=== PATIENT | male | born 1990 | race American Indian/Alaskan Native ===

== ENCOUNTER 2017-08-06 06:15 | Emergency (ER) | payer MEDICAID ==
[2017-08-06 06:26] VITALS: BP 139/100
[2017-08-06] MEDS ORDERED: Ketorolac 30 MG/ML SDV IM ONE (07:17)
--- NOTE | 2017-08-06 07:17 | EDM.PDOC ---
ED HPI GENERAL MEDICAL PROBLEM - General Chief Complaint: Chest Pain Stated Complaint: CHEST PAIN [id number] Time Seen by Provider: 08/06/17 07:19 Source of Information: Reports: Patient History Limitations: Reports: No Limitations - History of Present Illness INITIAL COMMENTS - FREE TEXT/NARRATIVE: Patient comes to the ER frequently. Today complains of left upper chest wall pain. Denies cough or shortness of breath. Pain is worse with movement. Patient' s had extensive workup in the past with negative findings. No reflux symptoms. No neck pain. No headache or dizziness. Patient states that he has diaphoresis. Denies constipation or diarrhea. No fever chills. No recent injuries. Denies rapid heart rate or respiratory rate Onset: Today Duration: Hour(s): Location: Reports: Chest Quality: Reports: Sharp Severity: Moderate Worsens with: Reports: Movement Associated Symptoms: Reports: No Other Symptoms Chest Pain Score (Numeric/FACES): 5 - Related Data Allergies Allergy/AdvReac Type Severity Reaction Status Date / Time No Known Allergies Allergy Verified 08/06/17 06:27 Home Meds: Home Meds . [No Known Home Meds] 08/06/17 [History] Past Medical History - Past Health History Medical/Surgical History: Denies Medical/Surgical History HEENT History: Reports: None Cardiovascular History: Reports: Hypertension Respiratory History: Reports: Asthma, Bronchitis, Recurrent Gastrointestinal History: Reports: GERD, Other (See Below) Other Gastrointestinal History: CAVERNOUS HEMANGIOMA LIVER Musculoskeletal History: Reports: None Psychiatric History: Reports: Anxiety, Depression, Panic Attack Endocrine/Metabolic History: Reports: None - Past Surgical History Other Musculoskeletal Surgeries/Procedures:: Toenail Excision Social & Family History - Family History Family Medical History: Noncontributory - Tobacco Use Smoking Status *Q: Never Smoker Years of Tobacco use: 10 Packs/Tins Daily: 0.1 Used Tobacco, but Quit: Yes Month Tobacco Last Used: september 2015 Second Hand Smoke Exposure: Yes - Caffeine Use Caffeine Use: Reports: None - Alcohol Use Days Per Week of Alcohol Use: 2 Number of Drinks Per Day: 12 Total Drinks Per Week: 24 - Recreational Drug Use Recreational Drug Use: No Drug Use in Last 12 Months: No Recreational Drug Type: Reports: Marijuana/Hashish Recreational Drug Use Frequency: Not Used In Over 6 Months Recreational Drug Last Use: 13 years ago - Living Situation & Occupation Living situation: Reports: Single Occupation: Employed ED ROS GENERAL - Review of Systems Review Of Systems: See Below Constitutional: Reports: No Symptoms HEENT: Reports: No Symptoms Respiratory: Reports: No Symptoms Cardiovascular: Reports: Chest Pain Endocrine: Reports: No Symptoms GI/Abdominal: Reports: No Symptoms : Reports: No Symptoms Musculoskeletal: Reports: No Symptoms Skin: Reports: No Symptoms Neurological: Reports: No Symptoms Psychiatric: Reports: No Symptoms Hematologic/Lymphatic: Reports: No Symptoms Immunologic: Reports: No Symptoms ED EXAM, GENERAL - Physical Exam Exam: See Below Exam Limited By: No Limitations General Appearance: Alert Throat/Mouth: Normal Inspection, Normal Oropharynx Respiratory/Chest: No Respiratory Distress, Lungs Clear Cardiovascular: Normal Peripheral Pulses, Regular Rate, Rhythm, No Murmur Extremities: Normal Range of Motion Neurological: Alert, CN II-XII Intact Skin Exam: Warm, Dry Course - Vital Signs Last Recorded V/S: Last Vital Signs Temp 98.0 F 08/06/17 06:24 Pulse 97 08/06/17 06:24 Resp 20 08/06/17 06:24 BP 139/100 H 08/06/17 06:24 Pulse Ox 98 08/06/17 06:24 - Orders/Labs/Meds Orders: Active Orders 24 hr Category Date Time Status EKG 12 Lead [EKG Documentation Completion] [RC] STAT Care 08/06/17 07:21 Active CBC WITH AUTO DIFF [HEME] Stat Lab 08/06/17 07:21 Ordered D-DIMER QUANTITATIVE [COAG] Stat Lab 08/06/17 07:17 Ordered SEDIMENTATION RATE MANUAL [HEME] Stat Lab 08/06/17 07:17 Ordered Meds: Medications Discontinued Medications Generic Name Dose Route Start Last Admin Trade Name Leonila PRN Reason Stop Dose Admin Ketorolac Tromethamine 30 mg 08/06/17 07:17 Toradol IM 08/06/17 07:18 ONETIME ONE Departure - Departure Time of Disposition: 07:33 Disposition: Against Medical Advice 07 Condition: Good Clinical Impression: Non-cardiac chest pain Forms: ED Department Discharge, Refusal of Care AMA Additional Instructions: Patient refused medications lab work and further workup. Patient left AGAINST MEDICAL ADVICE - My Orders Last 24 Hours: My Active Orders 08/06/17 07:17 D-DIMER QUANTITATIVE [COAG] Stat SEDIMENTATION RATE MANUAL [HEME] Stat 08/06/17 07:21 EKG 12 Lead [EKG Documentation Completion] [RC] STAT CBC WITH AUTO DIFF [HEME] Stat - Assessment/Plan Last 24 Hours: My Active Orders 08/06/17 07:17 D-DIMER QUANTITATIVE [COAG] Stat SEDIMENTATION RATE MANUAL [HEME] Stat 08/06/17 07:21 EKG 12 Lead [EKG Documentation Completion] [RC] STAT CBC WITH AUTO DIFF [HEME] Stat
== END 2017-08-06 07:25 | disposition left against medical advice (07) ==
LOC: DL.ED 06:15
DX: R07.89 Other chest pain (principal); I10 Essential (primary) hypertension; Z87.891 Personal history of nicotine dependence
CPT/HCPCS: 99285

== ENCOUNTER 2018-07-16 00:13 | Emergency (ER) | payer MEDICAID ==
[2018-07-16 00:25] VITALS: BP 158/82
--- NOTE | 2018-07-16 00:41 | EDM.PDOC ---
ED HPI GENERAL MEDICAL PROBLEM - General Chief Complaint: Respiratory Problem Stated Complaint: BRONCHITUS Time Seen by Provider: 07/16/18 00:33 Source of Information: Reports: Patient History Limitations: Reports: No Limitations - History of Present Illness INITIAL COMMENTS - FREE TEXT/NARRATIVE: c/o 8 weeks h/o bronchitis and also has tooth ache and orajel not helping. Treatments ATTRACTION ATTENDANT: Reports: Acetaminophen - Related Data Allergies Allergy/AdvReac Type Severity Reaction Status Date / Time No Known Allergies Allergy Verified 08/06/17 06:27 Home Meds: Home Meds . [No Known Home Meds] 08/06/17 [History] Past Medical History - Past Health History Medical/Surgical History: Denies Medical/Surgical History HEENT History: Reports: None Cardiovascular History: Reports: Hypertension Respiratory History: Reports: Asthma, Bronchitis, Recurrent Gastrointestinal History: Reports: GERD, Other (See Below) Other Gastrointestinal History: CAVERNOUS HEMANGIOMA LIVER Musculoskeletal History: Reports: None Psychiatric History: Reports: Anxiety, Depression, Panic Attack Endocrine/Metabolic History: Reports: None - Past Surgical History Other Musculoskeletal Surgeries/Procedures:: Toenail Excision Social & Family History - Family History Family Medical History: Noncontributory - Tobacco Use Smoking Status *Q: Former Smoker Used Tobacco, but Quit: No Second Hand Smoke Exposure: Yes - Caffeine Use Caffeine Use: Reports: Coffee - Alcohol Use Date of Last Drink: 07/14/18 - Recreational Drug Use Recreational Drug Use: No - Living Situation & Occupation Living situation: Reports: Single Occupation: Employed ED ROS GENERAL - Review of Systems Review Of Systems: ROS reveals no pertinent complaints other than HPI. ED EXAM, GENERAL - Physical Exam Exam: See Below Exam Limited By: No Limitations General Appearance: Alert, WD/WN, No Apparent Distress Ears: Hearing Grossly Normal Throat/Mouth: Normal Voice, No Airway Compromise, Other (left upper molars decay ) Head: Atraumatic Neck: Non-Tender, Full Range of Motion Respiratory/Chest: No Respiratory Distress, No Accessory Muscle Use, Rhonchi. No: Decreased Breath Sounds Cardiovascular: Regular Rate, Rhythm GI/Abdominal: Soft, Non-Tender Neurological: Alert, Oriented, Normal Cognition, Normal Gait, No Motor/Sensory Deficits Psychiatric: Flat Affect Skin Exam: Warm, Dry, Normal Color Lymphatic: No Adenopathy Course - Vital Signs Last Recorded V/S: Last Vital Signs Temp 36.6 C 07/16/18 00:23 Pulse 116 H 07/16/18 00:23 Resp 21 H 07/16/18 00:23 BP 158/82 H 07/16/18 00:23 Pulse Ox 100 07/16/18 00:23 - Orders/Labs/Meds Orders: Active Orders 24 hr Category Date Time Status Chest 2V [CR] Urgent Exams 07/16/18 00:26 Taken Clindamycin HCl [Cleocin] Med 07/16/18 01:32 Once 150 mg PO ONETIME ONE Ketorolac [Toradol] Med 07/16/18 01:32 Once 10 mg PO ONETIME ONE - Re-Assessments/Exams Free Text/Narrative Re-Assessment/Exam: 07/16/18 01:33 results discussed with pt Departure - Departure Time of Disposition: 01:33 Disposition: Home, Self-Care 01 Condition: Good Clinical Impression: Acute bronchitis, Dental abscess - Discharge Information Instructions: Acute Bronchitis, Adult, [id number] Forms: ED Department Discharge Additional Instructions: 1) no solid foods next 48 hours 2) see DENTIST Tuesday rx given; clindamycin 150mg qid x 41 toradol 10mg bid prn x 12 - My Orders Last 24 Hours: My Active Orders 07/16/18 00:26 Chest 2V [CR] Urgent 07/16/18 01:32 Clindamycin HCl [Cleocin] 150 mg PO ONETIME ONE Ketorolac [Toradol] 10 mg PO ONETIME ONE - Assessment/Plan Last 24 Hours: My Active Orders 07/16/18 00:26 Chest 2V [CR] Urgent 07/16/18 01:32 Clindamycin HCl [Cleocin] 150 mg PO ONETIME ONE Ketorolac [Toradol] 10 mg PO ONETIME ONE
[2018-07-16] MEDS ORDERED: Ketorolac 10 MG Tab PO ONE (01:32)
[2018-07-16] MEDS ORDERED: Clindamycin HCl 150 MG Cap PO ONE (01:32)
== END 2018-07-16 01:50 | disposition home or self-care (01) ==
LOC: DL.ED 00:13
DX: J20.9 Acute bronchitis, unspecified (principal); K04.7 Periapical abscess without sinus; I10 Essential (primary) hypertension; Z87.891 Personal history of nicotine dependence
CPT/HCPCS: 71046; 99283; A9270

== ENCOUNTER 2020-06-26 11:02 | Observation (INO) | payer MEDICAID ==
--- NOTE | 2020-06-26 11:19 | EDM.PDOCBH ---
ED HPI GENERAL MEDICAL PROBLEM - General Time Seen by Provider: 06/26/20 11:11 Source of Information: Reports: EMS, EMS Notes Reviewed, RN, RN Notes Reviewed History Limitations: Reports: Altered Mental Status, Intoxication - History of Present Illness INITIAL COMMENTS - FREE TEXT/NARRATIVE: Patient presents to the ED via EMS due to lethargy and unresponsiveness at the local bar. Per EMS report the patient was drinking this morning at a local bar when the patron noted he was not responding verbally to questions. These patrons lowered him to the ground to prevent him from falling and called EMS. The patient was given Narcan 2mg en route which did not improve his responsiveness. EMS states he moves to deep pain, but does not open his eyes. Upon arrival to this facility the patient remains unresponsive to verbal comma nds but does move his extremities and trunk to deep pain. - Related Data Allergies Allergy/AdvReac Type Severity Reaction Status Date / Time No Known Allergies Allergy Verified 08/06/17 06:27 Home Meds: Home Meds . [No Known Home Meds] 08/06/17 [History] Past Medical History - Past Health History Medical/Surgical History: Denies Medical/Surgical History HEENT History: Reports: None Cardiovascular History: Reports: Hypertension Respiratory History: Reports: Asthma, Bronchitis, Recurrent Gastrointestinal History: Reports: GERD, Other (See Below) Other Gastrointestinal History: CAVERNOUS HEMANGIOMA LIVER Musculoskeletal History: Reports: None Psychiatric History: Reports: Anxiety, Depression, Panic Attack Endocrine/Metabolic History: Reports: None - Past Surgical History Other Musculoskeletal Surgeries/Procedures:: Toenail Excision Social & Family History - Family History Family Medical History: No Pertinent Family History - Caffeine Use Caffeine Use: Reports: Coffee - Living Situation & Occupation Living situation: Reports: Single Occupation: Employed ED ROS GENERAL - Review of Systems Review Of Systems: Unable To Obtain Reason Not Obtained: Patient intoxicated and unresponsive ED EXAM, BEHAVIORAL HEALTH - Physical Exam Exam: See Below Exam Limited By: Intoxication (AMS) General Appearance: Lethargic Eye Exam: Bilateral Eye: PERRL (6mm), Other (Scleral injection) Head: Atraumatic, Normocephalic Respiratory/Chest: Lungs Clear, No Accessory Muscle Use, Chest Non-Tender, Other (Intermittent snoring respirations) Cardiovascular: Normal Peripheral Pulses, Regular Rate, Rhythm, No Edema, No Gallop, No JVD, No Murmur, No Rub, Tachycardia GI/Abdominal: Normal Bowel Sounds, Soft, Non-Tender, No Distention, No Mass, Pelvis Stable (Male) Exam: Deferred Rectal (Males) Exam: Deferred Extremities: Normal Inspection, Normal Range of Motion, Non-Tender, No Pedal Edema, Normal Capillary Refill Neurological: Withdraws to Pain Skin Exam: Warm, Dry, Intact, Normal color, No rash. No: Ecchymosis, Erythema, Excoriations, Jaundice, Mottled, Pallor, Petechiae #1 Interpretation EKG Date: 06/26/20 Time: 11:19 Rhythm: NSR Rate (Beats/Min): 95 Merna: Normal P-Wave: Present QRS: Normal ST-T: Normal QT: Normal COURSE, BEHAVIORAL HEALTH COMP - Course Vital Signs: Last Vital Signs Temp 98.1 F 06/26/20 11:17 Pulse 95 06/26/20 11:17 Resp 18 06/26/20 11:17 BP 125/83 06/26/20 11:17 Pulse Ox 99 06/26/20 11:17 Orders, Labs, Meds: Active Orders 24 hr Category Date Time Status Admission Diagnosis [ADT] Stat ADT 06/26/20 11:59 Ordered Admission Status [Patient Status] [ADT] Routine ADT 06/26/20 11:59 Ordered EKG Documentation Completion [RC] STAT Care 06/26/20 11:04 Active CORONAVIRUS COVID-19 HOWARD [MOLEC] Stat Lab 06/26/20 11:55 Ordered MVI, Adult with Vitamin K [Infuvite Adult] 10 ml Med 06/26/20 11:23 Ordered Thiamine [Vitamin B-1] 100 mg Folic Acid 1 mg Lactated Ringers [Ringers, Lactated] 1,000 ml IV .BOLUS Medication Orders Multivitamins/Minerals 10 ml/Thiamine HCl 100 mg/ Folic Acid 1 mg/ Lactated Ringer's 1,011.2 mls @ 999 mls/hr IV .BOLUS ONE Stop: 06/26/20 12:23 Laboratory Tests 06/26/20 06/26/20 06/26/20 Range/Units 11:15 11:15 11:15 WBC 7.9 (5.0-10.0) 10^3/uL RBC 5.22 (4.6-6.2) 10^6/uL Hgb 15.1 (14.0-18.0) g/dL Hct 44.3 (40.0-54.0) % MCV 84.9 (80-100) fL MCH 28.9 (27.0-34.0) pg MCHC 34.1 (33.0-35.0) g/dL Plt Count 223 (150-450) 10^3/uL Neut % (Auto) 51.5 (42.2-75.2) % Lymph % (Auto) 38.6 (20.5-50.1) % Harvey % (Auto) 8.0 (2-8) % Eos % (Auto) 1.5 (1.0-3.0) % Baso % (Auto) 0.4 (0.0-1.0) % Sodium 140 (136-145) mmol/L Potassium 3.4 L (3.5-5.1) mmol/L Chloride 103 (98-107) mmol/L Carbon Dioxide 22 (21-32) mmol/L Anion Gap 18.4 H (7-13) mEq/L BUN 7 (7-18) mg/dL Creatinine 0.55 L (0.70-1.30) mg/dL Est Cr Clr Drug Dosing 207.27 mL/min Estimated GFR (MDRD) > 60 BUN/Creatinine Ratio 12.7 (No establ ref range) Glucose 167 H (74-99) mg/dL Lactic Acid 1.6 (0.4-2.0) mmol/L Calcium 7.6 L (8.5-10.1) mg/dL Magnesium 2.0 (1.8-2.4) mg/dL Total Bilirubin 0.3 (0.2-1.0) mg/dL AST 37 (15-37) U/L ALT 55 (16-63) U/L Alkaline Phosphatase 84 (46-116) U/L Troponin I < 0.017 (0.000-0.056) ng/mL C-Reactive Protein 1.4 H (0.0-0.9) mg/dL Total Protein 7.3 (6.4-8.2) g/dL Albumin 3.4 (3.4-5.0) g/dL Globulin 3.9 Albumin/Globulin Ratio 0.9 Urine Color (YELLOW) Urine Appearance (CLEAR) Urine pH (5.0-9.0) Ur Specific [place] (1.005-1.030) Urine Protein (NEGATIVE) Urine Glucose (UA) (NEGATIVE) Urine Ketones (NEGATIVE) Urine Occult Blood (NEGATIVE) Urine Nitrite (NEGATIVE) Urine Bilirubin (NEGATIVE) Urine Urobilinogen (0.2-1.0) mg/dL Ur Leukocyte Esterase (NEGATIVE) Urine RBC /HPF Urine WBC (0-5/HPF) /HPF Ur Epithelial Cells (NOT SEEN) /HPF Urine Bacteria (0-FEW/HPF) /HPF Urine Mucus (NOT SEEN) /LPF Urine Opiates Screen (NEGATIVE) Ur Oxycodone Screen (NEGATIVE) Urine Methadone Screen (NEGATIVE) Ur Barbiturates Screen (NEGATIVE) U Tricyclic Antidepress (NEGATIVE) Ur Phencyclidine Scrn (NEGATIVE) Ur Amphetamine Screen (NEGATIVE) U Methamphetamines Scrn (NEGATIVE) Urine MDMA Screen (NEGATIVE) U Benzodiazepines Scrn (NEGATIVE) Urine Cocaine Screen (NEGATIVE) U Marijuana (THC) Screen (NEGATIVE) Ethyl Alcohol 475 (0) mg/dL 06/26/20 06/26/20 Range/Units 11:17 11:17 WBC (5.0-10.0) 10^3/uL RBC (4.6-6.2) 10^6/uL Hgb (14.0-18.0) g/dL Hct (40.0-54.0) % MCV (80-100) fL MCH (27.0-34.0) pg MCHC (33.0-35.0) g/dL Plt Count (150-450) 10^3/uL Neut % (Auto) (42.2-75.2) % Lymph % (Auto) (20.5-50.1) % Harvey % (Auto) (2-8) % Eos % (Auto) (1.0-3.0) % Baso % (Auto) (0.0-1.0) % Sodium (136-145) mmol/L Potassium (3.5-5.1) mmol/L Chloride (98-107) mmol/L Carbon Dioxide (21-32) mmol/L Anion Gap (7-13) mEq/L BUN (7-18) mg/dL Creatinine (0.70-1.30) mg/dL Est Cr Clr Drug Dosing mL/min Estimated GFR (MDRD) BUN/Creatinine Ratio (No establ ref range) Glucose (74-99) mg/dL Lactic Acid (0.4-2.0) mmol/L Calcium (8.5-10.1) mg/dL Magnesium (1.8-2.4) mg/dL Total Bilirubin (0.2-1.0) mg/dL AST (15-37) U/L ALT (16-63) U/L Alkaline Phosphatase (46-116) U/L Troponin I (0.000-0.056) ng/mL C-Reactive Protein (0.0-0.9) mg/dL Total Protein (6.4-8.2) g/dL Albumin (3.4-5.0) g/dL Globulin Albumin/Globulin Ratio Urine Color Yellow (YELLOW) Urine Appearance Clear (CLEAR) Urine pH 5.0 (5.0-9.0) Ur Specific [place] <= 1.005 (1.005-1.030) Urine Protein Negative (NEGATIVE) Urine Glucose (UA) Negative (NEGATIVE) Urine Ketones Negative (NEGATIVE) Urine Occult Blood Trace-intact H (NEGATIVE) Urine Nitrite Negative (NEGATIVE) Urine Bilirubin Negative (NEGATIVE) Urine Urobilinogen 0.2 (0.2-1.0) mg/dL Ur Leukocyte Esterase Negative (NEGATIVE) Urine RBC Not seen /HPF Urine WBC Not seen (0-5/HPF) /HPF Ur Epithelial Cells Rare (NOT SEEN) /HPF Urine Bacteria Rare (0-FEW/HPF) /HPF Urine Mucus Not seen (NOT SEEN) /LPF Urine Opiates Screen Negative (NEGATIVE) Ur Oxycodone Screen Negative (NEGATIVE) Urine Methadone Screen Negative (NEGATIVE) Ur Barbiturates Screen Negative (NEGATIVE) U Tricyclic Antidepress Negative (NEGATIVE) Ur Phencyclidine Scrn Negative (NEGATIVE) Ur Amphetamine Screen Negative (NEGATIVE) U Methamphetamines Scrn Negative (NEGATIVE) Urine MDMA Screen Negative (NEGATIVE) U Benzodiazepines Scrn Negative (NEGATIVE) Urine Cocaine Screen Negative (NEGATIVE) U Marijuana (THC) Screen Negative (NEGATIVE) Ethyl Alcohol (0) mg/dL Medications Generic Name Dose Route Start Last Admin Trade Name Freq PRN Reason Stop Dose Admin Multivitamins/Minerals 10 ml/ 1,011.2 mls @ 999 mls/hr 06/26/20 11:23 Thiamine HCl 100 mg/ Folic IV 06/26/20 12:23 Acid 1 mg/ Lactated Ringer's .BOLUS ONE Re-Assessment/Re-Exam: Patient continues to have trunk and extremity movement to deep pain. 1L of LR finished, Banana bag to follow. CBC unremarkable for acute processes. CMP revealed mild hypokalemia at 3.4. Tox screen negative, ETOH [address] Chilel who kindly agreed to accept the patient for observation. Departure - Departure Time of Disposition: 12:04 Disposition: Refer to Observation Condition: Fair Clinical Impression: Hypokalemia Acute alcohol intoxication Qualifiers: Complication of substance-induced condition: uncomplicated Qualified Code(s): F10.920 - Alcohol use, unspecified with intoxication, uncomplicated - Discharge Information Sepsis Event Note (ED) - Focused Exam Vital Signs: Vital Signs Temp Pulse Resp BP Pulse Ox 06/26/20 11:17 98.1 F 95 18 125/83 99 - My Orders Last 24 Hours: My Active Orders 06/26/20 11:04 EKG Documentation Completion [RC] STAT 06/26/20 11:23 MVI, Adult with Vitamin K [Infuvite Adult] 10 ml Thiamine [Vitamin B-1] 100 mg Folic Acid 1 mg Lactated Ringers [Ringers, Lactated] 1,000 ml IV .BOLUS 06/26/20 11:55 CORONAVIRUS COVID-19 HOWARD [MOLEC] Stat 06/26/20 11:59 Admission Diagnosis [ADT] Stat Admission Status [Patient Status] [ADT] Routine - Assessment/Plan Last 24 Hours: My Active Orders 06/26/20 11:04 EKG Documentation Completion [RC] STAT 06/26/20 11:23 MVI, Adult with Vitamin K [Infuvite Adult] 10 ml Thiamine [Vitamin B-1] 100 mg F olic Acid 1 mg Lactated Ringers [Ringers, Lactated] 1,000 ml IV .BOLUS 06/26/20 11:55 CORONAVIRUS COVID-19 HOWARD [MOLEC] Stat 06/26/20 11:59 Admission Diagnosis [ADT] Stat Admission Status [Patient Status] [ADT] Routine
[2020-06-26] MEDS ORDERED: MVI, Adult with Vitamin K 10 ML, Thiamine 100 MG, Folic Acid 1 MG in Lactated Ringers 1... IV ONE ×4 (11:23)
[2020-06-26 11:48] LABS: ANION GAP 18.4 mEq/L (7-13); CHLORIDE,CL 103 mmol/L (98-107); SODIUM,NA 140 mmol/L (136-145)
[2020-06-26] MEDS ORDERED: Docusate Sodium 100 MG Cap PO PRN (12:47)
[2020-06-26] MEDS ORDERED: Magnesium Hydroxide 400 MG/5 ML Susp 30 ML Cup PO PRN (12:47)
[2020-06-26] MEDS ORDERED: Acetaminophen 325 MG Tab PO PRN (12:47)
--- NOTE | 2020-06-26 12:59 | PCM.HP ---
H&P History of Present Illness - General Date of Service: 06/26/20 Admit Problem/Dx: Admission Diagnosis/Problem Admission Diagnosis/Problem Alcohol intoxication Source of Information: EMS Notes Reviewed, RN Notes Reviewed, Other (ED provider ) History Limitations: Reports: Altered Mental Status - History of Present Illness Initial Comments - Free Text/Narative: Oneyda is 29 y/o M brought to the ED for evaluation of lethargy and unresponsiveness. Patient unable to provide history due to patient's factor. History from EMR and ED provider. Per reports patient presents to the ED via EMS due to lethargy and unresponsiveness at the local bar. Per EMS report the patient was drinking this morning at a local bar when the patron noted he was not responding verbally to questions. These patrons lowered him to the ground to prevent him from falling and called EMS. The patient was given Narcan 2mg en route which did not improve his responsiveness. EMS states he moves to deep pain, but does not open his eyes. Upon arrival to the ED the patient remains unresponsive to verbal commands but does move his extremities and trunk to deep pain. Vitals were stable. Labs essentially unremarkable. Blood alcohol level 457. U tox was negative. She received banana bag x1, 1 L of Ringer's lactate. Admission requested for further management. Onset of Symptoms: Reports: Today Duration of Symptoms: Reports: Hour(s): Location: Reports: Generalized Improves with: Reports: None Worsens with: Reports: None Associated Symptoms: Reports: Other (Lethargic) - Related Data Allergies/Adverse Reactions: Allergies Allergy/AdvReac Type Severity Reaction Status Date / Time No Known Allergies Allergy Verified 08/06/17 06:27 Home Medications: Home Meds . [No Known Home Meds] 08/06/17 [History] Past Medical History - Past Health History Medical/Surgical History: Denies Medical/Surgical History HEENT History: Reports: None Cardiovascular History: Reports: Hypertension Respiratory History: Reports: Asthma, Bronchitis, Recurrent Gastrointestinal History: Reports: GERD, Other (See Below) Other Gastrointestinal History: CAVERNOUS HEMANGIOMA LIVER Musculoskeletal History: Reports: None Psychiatric History: Reports: Anxiety, Depression, Panic Attack Endocrine/Metabolic History: Reports: None - Past Surgical History Other Musculoskeletal Surgeries/Procedures:: Toenail Excision Social & Family History - Family History Family Medical History: No Pertinent Family History - Caffeine Use Caffeine Use: Reports: Coffee - Living Situation & Occupation Living situation: Reports: Single Occupation: Employed H&P Review of Systems - Review of Systems: Review Of Systems: Unable To Obtain Reason Not Obtained: Patient lethargic General: Reports: No Symptoms HEENT: Reports: No Symptoms Pulmonary: Reports: No Symptoms Cardiovascular: Reports: No Symptoms Gastrointestinal: Reports: No Symptoms Genitourinary: Reports: No Symptoms Musculoskeletal: Reports: No Symptoms Skin: Reports: No Symptoms Psychiatric: Reports: No Symptoms Neurological: Reports: No Symptoms Hematologic/Lymphatic: Reports: No Symptoms Immunologic: Reports: No Symptoms Exam - Exam Exam: See Below (Patient lethargic and move extremities to sternal rub) - Vital Signs Vital Signs: Last Vital Signs Temp 98.1 F 06/26/20 11:17 Pulse 95 06/26/20 11:17 Resp 18 06/26/20 11:17 BP 125/83 06/26/20 11:17 Pulse Ox 99 06/26/20 11:17 Weight: 194 lb 3.2 oz - Exam Quality Assessment: Supplemental Oxygen, DVT Prophylaxis General: Lethargic HEENT: PERRLA, Hearing Intact, Mucosa Moist & Donald, Nares Patent, Normal Nasal Septum, Posterior Pharynx Clear, Conjunctiva Clear, EOMI, EACs Clear, TMs Clear Neck: Supple, Trachea Midline, 2 Lungs: Clear to Auscultation, Normal Respiratory Effort Cardiovascular: Regular Rate, Regular Rhythm GI/Abdominal Exam: Normal Bowel Sounds, Soft, Non-Tender, No Organomegaly, No Distention, No Abnormal Bruit, No Mass, Pelvis Stable (Male) Exam: No Hernia, Normal Inspection, Normal Prostate, Circumcised Rectal (Males) Exam: Deferred Back Exam: Normal Inspection, Full Range of Motion, NT Extremities: Normal Inspection, Normal Range of Motion, Non-Tender, No Pedal Edema, Normal Capillary Refill Skin: Warm, Dry, Intact Neurological: Other (Patient lethargic. Moves recently painful stimuli) Neuro Extensive - Mental Status: Other (Lethargic) Neuro Extensive - Motor, Sensory, Reflexes: Other (Unable to assess. Patient lethargic) Psychiatric: Alert, Normal Affect, Normal Mood - Patient Data Lab Results Last 24 hrs: Laboratory Results - last 24 hr 06/26/20 06/26/20 06/26/20 Range/Units 11:15 11:15 11:15 WBC 7.9 (5.0-10.0) 10^3/uL RBC 5.22 (4.6-6.2) 10^6/uL Hgb 15.1 (14.0-18.0) g/dL Hct 44.3 (40.0-54.0) % MCV 84.9 (80-100) fL MCH 28.9 (27.0-34.0) pg MCHC 34.1 (33.0-35.0) g/dL Plt Count 223 (150-450) 10^3/uL Neut % (Auto) 51.5 (42.2-75.2) % Lymph % (Auto) 38.6 (20.5-50.1) % [place] % (Auto) 8.0 (2-8) % Eos % (Auto) 1.5 (1.0-3.0) % Baso % (Auto) 0.4 (0.0-1.0) % Sodium 140 (136-145) mmol/L Potassium 3.4 L (3.5-5.1) mmol/L Chloride 103 (98-107) mmol/L Carbon Dioxide 22 (21-32) mmol/L Anion Gap 18.4 H (7-13) mEq/L BUN 7 (7-18) mg/dL Creatinine 0.55 L (0.70-1.30) mg/dL Est Cr Clr Drug Dosing 207.27 mL/min Estimated GFR (MDRD) > 60 BUN/Creatinine Ratio 12.7 (No establ ref range) Glucose 167 H (74-99) mg/dL Lactic Acid 1.6 (0.4-2.0) mmol/L Calcium 7.6 L (8.5-10.1) mg/dL Magnesium 2.0 (1.8-2.4) mg/dL Total Bilirubin 0.3 (0.2-1.0) mg/dL AST 37 (15-37) U/L ALT 55 (16-63) U/L Alkaline Phosphatase 84 (46-116) U/L Troponin I < 0.017 (0.000-0.056) ng/mL C-Reactive Protein 1.4 H (0.0-0.9) mg/dL Total Protein 7.3 (6.4-8.2) g/dL Albumin 3.4 (3.4-5.0) g/dL Globulin 3.9 Albumin/Globulin Ratio 0.9 Urine Color (YELLOW) Urine Appearance (CLEAR) Urine pH (5.0-9.0) Ur Specific [place] (1.005-1.030) Urine Protein (NEGATIVE) Urine Glucose (UA) (NEGATIVE) Urine Ketones (NEGATIVE) Urine Occult Blood (NEGATIVE) Urine Nitrite (NEGATIVE) Urine Bilirubin (NEGATIVE) Urine Urobilinogen (0.2-1.0) mg/dL Ur Leukocyte Esterase (NEGATIVE) Urine RBC /HPF Urine WBC (0-5/HPF) /HPF Ur Epithelial Cells (NOT SEEN) /HPF Urine Bacteria (0-FEW/HPF) /HPF Urine Mucus (NOT SEEN) /LPF Urine Opiates Screen (NEGATIVE) Ur Oxycodone Screen (NEGATIVE) Urine Methadone Screen (NEGATIVE) Ur Barbiturates Screen (NEGATIVE) U Tricyclic Antidepress (NEGATIVE) Ur Phencyclidine Scrn (NEGATIVE) Ur Amphetamine Screen (NEGATIVE) U Methamphetamines Scrn (NEGATIVE) Urine MDMA Screen (NEGATIVE) U Benzodiazepines Scrn (NEGATIVE) Urine Cocaine Screen (NEGATIVE) U Marijuana (THC) Screen (NEGATIVE) Ethyl Alcohol 475 (0) mg/dL SARS CoV-2 RNA Rapid HOWARD (NEGATIVE) 06/26/20 06/26/20 06/26/20 Range/Units 11:17 11:17 12:10 WBC (5.0-10.0) 10^3/uL RBC (4.6-6.2) 10^6/uL Hgb (14.0-18.0) g/dL Hct (40.0-54.0) % MCV (80-100) fL MCH (27.0-34.0) pg MCHC (33.0-35.0) g/dL Plt Count (150-450) 10^3/uL Neut % (Auto) (42.2-75.2) % Lymph % (Auto) (20.5-50.1) % [place] % (Auto) (2-8) % Eos % (Auto) (1.0-3.0) % Baso % (Auto) (0.0-1.0) % Sodium (136-145) mmol/L Potassium (3.5-5.1) mmol/L Chloride (98-107) mmol/L Carbon Dioxide (21-32) mmol/L Anion Gap (7-13) mEq/L BUN (7-18) mg/dL Creatinine (0.70-1.30) mg/dL Est Cr Clr Drug Dosing mL/min Estimated GFR (MDRD) BUN/Creatinine Ratio (No establ ref range) Glucose (74-99) mg/dL Lactic Acid (0.4-2.0) mmol/L Calcium (8.5-10.1) mg/dL Magnesium (1.8-2.4) mg/dL Total Bilirubin (0.2-1.0) mg/dL AST (15-37) U/L ALT (16-63) U/L Alkaline Phosphatase (46-116) U/L Troponin I (0.000-0.056) ng/mL C-Reactive Protein (0.0-0.9) mg/dL Total Protein (6.4-8.2) g/dL Albumin (3.4-5.0) g/dL Globulin Albumin/Globulin Ratio Urine Color Yellow (YELLOW) Urine Appearance Clear (CLEAR) Urine pH 5.0 (5.0-9.0) Ur Specific [place] <= 1.005 (1.005-1.030) Urine Protein Negative (NEGATIVE) Urine Glucose (UA) Negative (NEGATIVE) Urine Ketones Negative (NEGATIVE) Urine Occult Blood Trace-intact H (NEGATIVE) Urine Nitrite Negative (NEGATIVE) Urine Bilirubin Negative (NEGATIVE) Urine Urobilinogen 0.2 (0.2-1.0) mg/dL Ur Leukocyte Esterase Negative (NEGATIVE) Urine RBC Not seen /HPF Urine WBC Not seen (0-5/HPF) /HPF Ur Epithelial Cells Rare (NOT SEEN) /HPF Urine Bacteria Rare (0-FEW/HPF) /HPF Urine Mucus Not seen (NOT SEEN) /LPF Urine Opiates Screen Negative (NEGATIVE) Ur Oxycodone Screen Negative (NEGATIVE) Urine Methadone Screen Negative (NEGATIVE) Ur Barbiturates Screen Negative (NEGATIVE) U Tricyclic Antidepress Negative (NEGATIVE) Ur Phencyclidine Scrn Negative (NEGATIVE) Ur Amphetamine Screen Negative (NEGATIVE) U Methamphetamines Scrn Negative (NEGATIVE) Urine MDMA Screen Negative (NEGATIVE) U Benzodiazepines Scrn Negative (NEGATIVE) Urine Cocaine Screen Negative (NEGATIVE) U Marijuana (THC) Screen Negative (NEGATIVE) Ethyl Alcohol (0) mg/dL SARS CoV-2 RNA Rapid HOWARD Negative (NEGATIVE) Result Diagrams: 06/26/20 11:15 06/26/20 11:15 Problem List Initiated/Reviewed/Updated: Yes Orders Last 24hrs: Active Orders 24 hr Category Date Time Status Admission Diagnosis [ADT] Stat ADT 06/26/20 11:59 Ordered Admission Status [Patient Status] [ADT] Routine ADT 06/26/20 11:59 Active Bedrest Bedside Commode [RC] ASDIRECTED Care 06/26/20 12:47 Ordered EKG Documentation Completion [RC] STAT Care 06/26/20 11:04 Active Notify Provider Vital Signs [RC] ASDIRECTED Care 06/26/20 12:48 Ordered Oxygen Therapy [RC] PRN Care 06/26/20 12:47 Ordered VTE/DVT Education [RC] PER UNIT ROUTINE Care 06/26/20 12:47 Ordered Vital Signs [RC] Q4H Care 06/26/20 12:47 Ordered PT Evaluation and Treatment [CONS] Routine Cons 06/26/20 12:47 Ordered Nothing per Oral Now Diet [DIET] Diet 06/26/20 Lunch Ordered Brain wo Cont [MR] Routine Exams 06/26/20 12:51 Ordered PHOSPHORUS [CHEM] Routine Lab 06/26/20 12:51 Ordered Acetaminophen [TylenoL] Med 06/26/20 12:47 Ordered 650 mg PO Q4H PRN Dextrose 5%-0.9% NaCl [Dextrose 5%-Normal Saline] 500 Med 06/26/20 13:00 Ordered ml IV ASDIRECTED Docusate Sodium [Colace] Med 06/26/20 12:47 Ordered 100 mg PO BID PRN Heparin Sodium Med 06/26/20 21:00 Ordered 5,000 units SUBCUT Q12HR Magnesium Hydroxide [Milk of Magnesia] Med 06/26/20 12:47 Ordered 30 ml PO Q12H PRN Resuscitation Status Routine Resus Stat 06/26/20 12:47 Ordered Medication Orders Acetaminophen (Tylenol) 650 mg PO Q4H PRN PRN Reason: Pain (Mild 1-3)/fever Docusate Sodium (Colace) 100 mg PO BID PRN PRN Reason: Constipation Heparin Sodium (Porcine) (Heparin Sodium) 5,000 units SUBCUT Q12HR EDU Dextrose/Sodium Chloride (Dextrose 5%-Normal Saline) 500 mls @ 250 mls/hr IV ASDIRECTED EDU Stop: 06/29/20 14:59 Magnesium Hydroxide (Milk Of Magnesia) 30 ml PO Q12H PRN PRN Reason: Constipation Assessment/Plan Comment:: #Acute alcohol intoxication #Toxic encephalopathy due to above Admit to medical floor Received banana bag x1 and 1 L of IV fluid IV fluid with D5 NS 0.9% NS at 250 cc/h Check electrolytes and replete accordingly Aspiration/seizure/fall precautions #Hypokalemia Replace per protocol
[2020-06-26] MEDS ORDERED: Dextrose 5%-0.9% NaCl 500 ML IV SCH (13:00)
[2020-06-26] MEDS: Dextrose 5%-0.9% NaCl 1,000 ML IV SCH ×2 (13:41→17:49)
[2020-06-26] MEDS: Potassium Chloride 10 MEQ in Premix Bag 1 BAG IV SCH ×3 (13:41→15:55)
[2020-06-26] MEDS ORDERED: Dextrose 5%-0.9% NaCl 1,000 ML IV SCH (13:45)
[2020-06-26] MEDS ORDERED: LORazepam 2 MG/ML SDV IVPUSH PRN (14:25)
[2020-06-26] MEDS ORDERED: LORazepam 1 MG Tab PO PRN (14:26)
[2020-06-26] MEDS ORDERED: Sodium Chloride 0.9% 10 ML Syringe FLUSH PRN (14:47)
[2020-06-26] MEDS: LORazepam 2 MG/ML SDV IVPUSH PRN ×2 (15:06→17:27)
[2020-06-26] MEDS: Heparin Sodium 5,000 Units/ML Vial SUBCUT SCH (22:32)
[2020-06-27] MEDS ORDERED: Dextrose 5%-0.9% NaCl 1,000 ML IV SCH
[2020-06-27 03:22] VITALS: PULSE 98
[2020-06-27 08:01] VITALS: BP 138/79
[2020-06-27] MEDS: Heparin Sodium 5,000 Units/ML Vial SUBCUT SCH (09:41)
[2020-06-27 09:52] LABS: ANION GAP 13.8 mEq/L (7-13); CHLORIDE,CL 105 mmol/L (98-107); SODIUM,NA 142 mmol/L (136-145)
--- NOTE | 2020-06-27 10:28 | PCM.DCSUM1 ---
Discharge Summary - Hospital Course Free Text/Narrative:: Oneyda is 29 y/o M brought to the ED for evaluation of lethargy and unresponsiveness. He was found to be acutely intoxicated with alcohol. He was admitted tested IV hydration and electrolyte replacement. He regained full consciousness and requested to go home. Patient apparently had a fall overnight but did not sustain any injury. He denies any pain this morning. He was safely discharged home with plan to follow-up with PCP. Patient was strongly advised on the importance of quitting alcohol abuse and he verbalized understanding. He was given resources to help with outpatient chemical dependency treatment programs. Diagnosis: Stroke: No - Discharge Data Discharge Date: 06/27/20 Discharge Disposition: Home, Self-Care 01 Condition: Good - Referral to Home Health Primary Care Physician: PCP Unobtainable - Patient Summary/Data Consults: Consultations 06/26/20 12:47 PT Evaluation and Treatment [CONS] Routine - Patient Instructions Diet: Regular Diet as Tolerated Activity: As Tolerated Showering/Bathing: May Shower Notify Provider of: Nausea and/or Vomiting - Discharge Plan *PRESCRIPTION DRUG MONITORING PROGRAM REVIEWED*: Not Applicable *COPY OF PRESCRIPTION DRUG MONITORING REPORT IN PATIENT MAYA: Not Applicable Prescriptions/Med Rec: Folic Acid 1 mg PO BEDTIME #30 tab Multivitamin 1 each PO DAILY #30 tablet Thiamine [Vitamin B-1] 100 mg PO BEDTIME 1 Days #30 tab Home Medications: Home Meds Folic Acid 1 mg PO BEDTIME #30 tab 06/27/20 [Rx] Multivitamin 1 each PO DAILY #30 tablet 06/27/20 [Rx] Thiamine [Vitamin B-1] 100 mg PO BEDTIME 1 Days #30 tab 06/27/20 [Rx] Patient Handouts: Alcohol Use Disorder, Alcohol Abuse and Dependence Information, Adult, Thiamine, Vitamin B1 tablets, Finding Treatment for Addiction, Folic Acid, Vitamin B9 tablets Referrals: PCP,Unobtain [Primary Care Provider] - - Discharge Summary/Plan Comment DC Time >30 min.: Yes - General Info Date of Service: 06/27/20 Functional Status: Reports: Pain Controlled - Review of Systems General: Reports: No Symptoms HEENT: Reports: No Symptoms Pulmonary: Reports: No Symptoms Cardiovascular: Reports: No Symptoms Gastrointestinal: Reports: No Symptoms Genitourinary: Reports: No Symptoms Musculoskeletal: Reports: No Symptoms Skin: Reports: No Symptoms Neurological: Reports: No Symptoms Psychiatric: Reports: No Symptoms - Patient Data Vitals - Most Recent: Last Vital Signs Temp 98.7 F 06/27/20 08:00 Pulse 98 06/27/20 08:00 Resp 16 06/27/20 08:00 BP 138/79 06/27/20 08:00 Pulse Ox 98 06/27/20 08:00 Weight - Most Recent: 189 lb 6.4 oz I&O - Last 24 hours: Intake & Output 06/26/20 06/27/20 06/27/20 22:59 06:59 14:59 Output Total 500 Balance -500 Lab Results - Last 24 hrs: Laboratory Results - last 24 hr 06/26/20 06/26/20 06/26/20 Range/Units 11:15 11:15 11:15 WBC 7.9 (5.0-10.0) 10^3/uL RBC 5.22 (4.6-6.2) 10^6/uL Hgb 15.1 (14.0-18.0) g/dL Hct 44.3 (40.0-54.0) % MCV 84.9 (80-100) fL MCH 28.9 (27.0-34.0) pg MCHC 34.1 (33.0-35.0) g/dL Plt Count 223 (150-450) 10^3/uL Neut % (Auto) 51.5 (42.2-75.2) % Lymph % (Auto) 38.6 (20.5-50.1) % [place] % (Auto) 8.0 (2-8) % Eos % (Auto) 1.5 (1.0-3.0) % Baso % (Auto) 0.4 (0.0-1.0) % Sodium 140 (136-145) mmol/L Potassium 3.4 L (3.5-5.1) mmol/L Chloride 103 (98-107) mmol/L Carbon Dioxide 22 (21-32) mmol/L Anion Gap 18.4 H (7-13) mEq/L BUN 7 (7-18) mg/dL Creatinine 0.55 L (0.70-1.30) mg/dL Est Cr Clr Drug Dosing 207.27 mL/min Estimated GFR (MDRD) > 60 BUN/Creatinine Ratio 12.7 (No establ ref range) Glucose 167 H (74-99) mg/dL Lactic Acid 1.6 (0.4-2.0) mmol/L Calcium 7.6 L (8.5-10.1) mg/dL Phosphorus (2.6-4.7) mg/dL Magnesium 2.0 (1.8-2.4) mg/dL Total Bilirubin 0.3 (0.2-1.0) mg/dL AST 37 (15-37) U/L ALT 55 (16-63) U/L Alkaline Phosphatase 84 (46-116) U/L Troponin I < 0.017 (0.000-0.056) ng/mL C-Reactive Protein 1.4 H (0.0-0.9) mg/dL Total Protein 7.3 (6.4-8.2) g/dL Albumin 3.4 (3.4-5.0) g/dL Globulin 3.9 Albumin/Globulin Ratio 0.9 Urine Color (YELLOW) Urine Appearance (CLEAR) Urine pH (5.0-9.0) Ur Specific [place] (1.005-1.030) Urine Protein (NEGATIVE) Urine Glucose (UA) (NEGATIVE) Urine Ketones (NEGATIVE) Urine Occult Blood (NEGATIVE) Urine Nitrite (NEGATIVE) Urine Bilirubin (NEGATIVE) Urine Urobilinogen (0.2-1.0) mg/dL Ur Leukocyte Esterase (NEGATIVE) Urine RBC /HPF Urine WBC (0-5/HPF) /HPF Ur Epithelial Cells (NOT SEEN) /HPF Urine Bacteria (0-FEW/HPF) /HPF Urine Mucus (NOT SEEN) /LPF Urine Opiates Screen (NEGATIVE) Ur Oxycodone Screen (NEGATIVE) Urine Methadone Screen (NEGATIVE) Ur Barbiturates Screen (NEGATIVE) U Tricyclic Antidepress (NEGATIVE) Ur Phencyclidine Scrn (NEGATIVE) Ur Amphetamine Screen (NEGATIVE) U Methamphetamines Scrn (NEGATIVE) Urine MDMA Screen (NEGATIVE) U Benzodiazepines Scrn (NEGATIVE) Urine Cocaine Screen (NEGATIVE) U Marijuana (THC) Screen (NEGATIVE) Ethyl Alcohol 475 (0) mg/dL SARS CoV-2 RNA Rapid HOWARD (NEGATIVE) 06/26/20 06/26/20 06/26/20 Range/Units 11:15 11:17 11:17 WBC (5.0-10.0) 10^3/uL RBC (4.6-6.2) 10^6/uL Hgb (14.0-18.0) g/dL Hct (40.0-54.0) % MCV (80-100) fL MCH (27.0-34.0) pg MCHC (33.0-35.0) g/dL Plt Count (150-450) 10^3/uL Neut % (Auto) (42.2-75.2) % Lymph % (Auto) (20.5-50.1) % [place] % (Auto) (2-8) % Eos % (Auto) (1.0-3.0) % Baso % (Auto) (0.0-1.0) % Sodium (136-145) mmol/L Potassium (3.5-5.1) mmol/L Chloride (98-107) mmol/L Carbon Dioxide (21-32) mmol/L Anion Gap (7-13) mEq/L BUN (7-18) mg/dL Creatinine (0.70-1.30) mg/dL Est Cr Clr Drug Dosing mL/min Estimated GFR (MDRD) BUN/Creatinine Ratio (No establ ref range) Glucose (74-99) mg/dL Lactic Acid (0.4-2.0) mmol/L Calcium (8.5-10.1) mg/dL Phosphorus 3.1 (2.6-4.7) mg/dL Magnesium (1.8-2.4) mg/dL Total Bilirubin (0.2-1.0) mg/dL AST (15-37) U/L ALT (16-63) U/L Alkaline Phosphatase (46-116) U/L Troponin I (0.000-0.056) ng/mL C-Reactive Protein (0.0-0.9) mg/dL Total Protein (6.4-8.2) g/dL Albumin (3.4-5.0) g/dL Globulin Albumin/Globulin Ratio Urine Color Yellow (YELLOW) Urine Appearance Clear (CLEAR) Urine pH 5.0 (5.0-9.0) Ur Specific [place] <= 1.005 (1.005-1.030) Urine Protein Negative (NEGATIVE) Urine Glucose (UA) Negative (NEGATIVE) Urine Ketones Negative (NEGATIVE) Urine Occult Blood Trace-intact H (NEGATIVE) Urine Nitrite Negative (NEGATIVE) Urine Bilirubin Negative (NEGATIVE) Urine Urobilinogen 0.2 (0.2-1.0) mg/dL Ur Leukocyte Esterase Negative (NEGATIVE) Urine RBC Not seen /HPF Urine WBC Not seen (0-5/HPF) /HPF Ur Epithelial Cells Rare (NOT SEEN) /HPF Urine Bacteria Rare (0-FEW/HPF) /HPF Urine Mucus Not seen (NOT SEEN) /LPF Urine Opiates Screen Negative (NEGATIVE) Ur Oxycodone Screen Negative (NEGATIVE) Urine Methadone Screen Negative (NEGATIVE) Ur Barbiturates Screen Negative (NEGATIVE) U Tricyclic Antidepress Negative (NEGATIVE) Ur Phencyclidine Scrn Negative (NEGATIVE) Ur Amphetamine Screen Negative (NEGATIVE) U Methamphetamines Scrn Negative (NEGATIVE) Urine MDMA Screen Negative (NEGATIVE) U Benzodiazepines Scrn Negative (NEGATIVE) Urine Cocaine Screen Negative (NEGATIVE) U Marijuana (THC) Screen Negative (NEGATIVE) Ethyl Alcohol (0) mg/dL SARS CoV-2 RNA Rapid HOWARD (NEGATIVE) 06/26/20 06/27/20 Range/Units 12:10 09:21 WBC (5.0-10.0) 10^3/uL RBC (4.6-6.2) 10^6/uL Hgb (14.0-18.0) g/dL Hct (40.0-54.0) % MCV (80-100) fL MCH (27.0-34.0) pg MCHC (33.0-35.0) g/dL Plt Count (150-450) 10^3/uL Neut % (Auto) (42.2-75.2) % Lymph % (Auto) (20.5-50.1) % [place] % (Auto) (2-8) % Eos % (Auto) (1.0-3.0) % Baso % (Auto) (0.0-1.0) % Sodium 142 (136-145) mmol/L Potassium 3.8 (3.5-5.1) mmol/L Chloride 105 (98-107) mmol/L Carbon Dioxide 27 (21-32) mmol/L Anion Gap 13.8 H (7-13) mEq/L BUN 6 L (7-18) mg/dL Creatinine 0.72 (0.70-1.30) mg/dL Est Cr Clr Drug Dosing 158.33 mL/min Estimated GFR (MDRD) > 60 BUN/Creatinine Ratio (No establ ref range) Glucose 125 H (74-99) mg/dL Lactic Acid (0.4-2.0) mmol/L Calcium 8.3 L (8.5-10.1) mg/dL Phosphorus (2.6-4.7) mg/dL Magnesium (1.8-2.4) mg/dL Total Bilirubin (0.2-1.0) mg/dL AST (15-37) U/L ALT (16-63) U/L Alkaline Phosphatase (46-116) U/L Troponin I (0.000-0.056) ng/mL C-Reactive Protein (0.0-0.9) mg/dL Total Protein (6.4-8.2) g/dL Albumin (3.4-5.0) g/dL Globulin Albumin/Globulin Ratio Urine Color (YELLOW) Urine Appearance (CLEAR) Urine pH (5.0-9.0) Ur Specific [place] (1.005-1.030) Urine Protein (NEGATIVE) Urine Glucose (UA) (NEGATIVE) Urine Ketones (NEGATIVE) Urine Occult Blood (NEGATIVE) Urine Nitrite (NEGATIVE) Urine Bilirubin (NEGATIVE) Urine Urobilinogen (0.2-1.0) mg/dL Ur Leukocyte Esterase (NEGATIVE) Urine RBC /HPF Urine WBC (0-5/HPF) /HPF Ur Epithelial Cells (NOT SEEN) /HPF Urine Bacteria (0-FEW/HPF) /HPF Urine Mucus (NOT SEEN) /LPF Urine Opiates Screen (NEGATIVE) Ur Oxycodone Screen (NEGATIVE) Urine Methadone Screen (NEGATIVE) Ur Barbiturates Screen (NEGATIVE) U Tricyclic Antidepress (NEGATIVE) Ur Phencyclidine Scrn (NEGATIVE) Ur Amphetamine Screen (NEGATIVE) U Methamphetamines Scrn (NEGATIVE) Urine MDMA Screen (NEGATIVE) U Benzodiazepines Scrn (NEGATIVE) Urine Cocaine Screen (NEGATIVE) U Marijuana (THC) Screen (NEGATIVE) Ethyl Alcohol (0) mg/dL SARS CoV-2 RNA Rapid HOWARD Negative (NEGATIVE) Med Orders - Current: Current Medications Acetaminophen (Tylenol) 650 mg PO Q4H PRN PRN Reason: Pain (Mild 1-3)/fever Docusate Sodium (Colace) 100 mg PO BID PRN PRN Reason: Constipation Heparin Sodium (Porcine) (Heparin Sodium) 5,000 units SUBCUT Q12HR EDU Last Admin: 06/27/20 09:41 Dose: 5,000 units Documented by: Dextrose/Sodium Chloride (Dextrose 5%-Normal Saline) 1,000 mls @ 250 mls/hr IV ASDIRECTED [facility] Stop: 06/27/20 17:44 Last Admin: 06/26/20 17:49 Dose: 150 mls/hr Documented by: Dextrose/Sodium Chloride (Dextrose 5%-Normal Saline) 1,000 mls @ 150 mls/hr IV ASDIRECTED [facility] Last Infusion: 06/27/20 03:14 Dose: 0 mls/hr Documented by: Lorazepam (Ativan) 0 mg PO TITRATE PRN; Protocol PRN Reason: Withdrawal Symptoms Lorazepam (Ativan) 0 mg IVPUSH TITRATE PRN; Protocol PRN Reason: Withdrawal Symptoms Last Admin: 06/26/20 17:27 Dose: 2 mg Documented by: Magnesium Hydroxide (Milk Of Magnesia) 30 ml PO Q12H PRN PRN Reason: Constipation Sodium Chloride (Saline Flush) 10 ml FLUSH ASDIRECTED PRN PRN Reason: Keep Vein Open Discontinued Medications Multivitamins/Minerals 10 ml/Thiamine HCl 100 mg/ Folic Acid 1 mg/ Lactated Ringer's 1,011.2 mls @ 999 mls/hr IV .BOLUS ONE Stop: 06/26/20 12:23 Last Admin: 06/26/20 12:15 Dose: 999 mls/hr Documented by: Dextrose/Sodium Chloride (Dextrose 5%-Normal Saline) 500 mls @ 250 mls/hr IV ASDIRECTED [facility] Stop: 06/29/20 14:59 Potassium Chloride 10 meq/ (Premix) 100 mls @ 100 mls/hr IV Q2H [facility] Stop: 06/26/20 16:59 Last Admin: 06/26/20 15:55 Dose: Not Given Documented by: Lorazepam (Ativan) 0 mg IVPUSH TITRATE PRN; Protocol PRN Reason: Withdrawal Symptoms - Exam General: Reports: Alert, Oriented HEENT: Reports: Pupils Equal, Pupils Reactive, EOMI, Mucous Membr. Moist/[place] Neck: Reports: Supple Lungs: Reports: Clear to Auscultation, Normal Respiratory Effort Cardiovascular: Reports: Regular Rate, Regular Rhythm GI/Abdominal Exam: Normal Bowel Sounds, Soft, Non-Tender, No Organomegaly, No Distention, No Abnormal Bruit, No Mass, Pelvis Stable (Male) Exam: No Hernia, Normal Inspection, Normal Prostate, Circumcised Rectal (Males) Exam: Normal Exam, Normal Rectal Tone, Prostate Normal Back Exam: Reports: Normal Inspection, Full Range of Motion Extremities: Normal Inspection, Normal Range of Motion, Non-Tender, No Pedal Edema, Normal Capillary Refill Skin: Reports: Warm, Dry, Intact Wound/Incisions: Reports: Healing Well Neurological: Reports: No New Focal Deficit Psy/Mental Status: Reports: Alert, Normal Affect, Normal Mood
== END 2020-06-27 09:45 | disposition home or self-care (01) ==
LOC: DL.ED 11:02 → DL.MS 11:59
PROVIDERS: ADMIT Student in an Organized Health Care Education/Training Program; ATTEND Student in an Organized Health Care Education/Training Program
DX: F10.129 Alcohol abuse with intoxication, unspecified (principal); G92 Toxic encephalopathy; I10 Essential (primary) hypertension; J45.909 Unspecified asthma, uncomplicated; K21.9 Gastro-esophageal reflux disease without esophagitis; F41.9 Anxiety disorder, unspecified; F32.9 Major depressive disorder, single episode, unspecified; E87.6 Hypokalemia; Z20.822 Contact with and (suspected) exposure to COVID-19
CPT/HCPCS: 36415; 80048; 80053; 80305; 80307; 81001; 83605; 83735; 84100; 84484; 85025; 86140; 87635; 93005; 96365; 99285; J1644; J2060; J3411; J3480; J7042; J7120; 93010; 96361; 96372; 96375; 96376; 99284; G0378; J3490; U0002

== ENCOUNTER 2020-11-05 11:21 | Emergency (ER) | payer MEDICAID ==
[2020-11-05 11:35] VITALS: BP 132/84; PULSE 110
[2020-11-05] MEDS ORDERED: Sodium Chloride 0.9% 1,000 ML IV ONE (12:19)
--- NOTE | 2020-11-05 12:21 | EDM.PDOC ---
ED HPI GENERAL MEDICAL PROBLEM - General Chief Complaint: Chest Pain Stated Complaint: CHEST PAIN WEAKNESS Time Seen by Provider: 11/05/20 12:10 Source of Information: Reports: Patient History Limitations: Reports: No Limitations - History of Present Illness INITIAL COMMENTS - FREE TEXT/NARRATIVE: This 30 yo male patient reports to the ED with a 2 month history of not feeling well. The patient reports about 3 weeks ago he was diagnosed with COVID. The patient reports he finished his quarantine, but has continued to have a cough, chest pains with cough, nausea/vomiting and diarrhea. The patient reports he was seen in the clinic 2 weeks ago, but was not given anything for his symptoms. Onset: Unknown/Unsure Duration: Week(s):, Constant Location: Reports: Chest, Abdomen Quality: Reports: Other Severity: Moderate Improves with: Reports: None Worsens with: Reports: None Context: Reports: Other Associated Symptoms: Reports: No Other Symptoms Treatments [employer]: Reports: EKG, IV/IO Epigastric Pain Score (Numeric/FACES): 5 - Related Data Allergies Allergy/AdvReac Type Severity Reaction Status Date / Time No Known Allergies Allergy Verified 11/05/20 11:50 Home Meds: Home Meds . [No Known Home Meds] 11/05/20 [History] Past Medical History - Past Health History Medical/Surgical History: Denies Medical/Surgical History HEENT History: Reports: None Cardiovascular History: Reports: None, Hypertension Respiratory History: Reports: Asthma, Bronchitis, Recurrent Gastrointestinal History: Reports: GERD, Other (See Below) Other Gastrointestinal History: CAVERNOUS HEMANGIOMA LIVER Genitourinary History: Reports: None Musculoskeletal History: Reports: None Neurological History: Reports: None Psychiatric History: Reports: Anxiety, Depression, Panic Attack Endocrine/Metabolic History: Reports: None Hematologic History: Reports: None Immunologic History: Reports: None Oncologic (Cancer) History: Reports: None Dermatologic History: Reports: None - Infectious Disease History Infectious Disease History: Reports: None - Past Surgical History Head Surgeries/Procedures: Reports: None GI Surgical History: Reports: Colonoscopy, EGD Other Musculoskeletal Surgeries/Procedures:: Toenail Excision Social & Family History - Family History Family Medical History: No Pertinent Family History - Tobacco Use Tobacco Use Status *Q: Current Every Day Tobacco User Years of Tobacco use: 10 Packs/Tins Daily: 0.2 - Caffeine Use Caffeine Use: Reports: Coffee - Recreational Drug Use Recreational Drug Use: No - Living Situation & Occupation Living situation: Reports: Single Occupation: Employed ED ROS GENERAL - Review of Systems Review Of Systems: Comprehensive ROS is negative, except as noted in HPI. ED EXAM, GENERAL - Physical Exam Exam: See Below Exam Limited By: No Limitations General Appearance: Alert, WD/WN, Moderate Distress Eye Exam: Bilateral Eye: Normal Inspection, PERRL Ears: Normal External Exam, Normal Canal, Hearing Grossly Normal, Normal TMs Nose: Normal Inspection, Normal Mucosa, No Blood Throat/Mouth: Normal Inspection, Normal Lips, Normal Teeth, Normal Gums, Normal Oropharynx, Normal Voice, No Airway Compromise Head: Atraumatic, Normocephalic Neck: Normal Inspection, Supple, Non-Tender, Full Range of Motion Respiratory/Chest: Decreased Breath Sounds Cardiovascular: Normal Peripheral Pulses, Regular Rate, Rhythm, No Edema, No Gallop, No JVD, No Murmur, No Rub GI/Abdominal: Normal Bowel Sounds, No Organomegaly, No Distention, No Abnormal Bruit, No Mass, Pelvis Stable, Tender (diffuse tenderness) (Male) Exam: Deferred Rectal (Males) Exam: Deferred Back Exam: Normal Inspection, Full Range of Motion, NT Extremities: Normal Inspection, Normal Range of Motion, Non-Tender, Normal Capillary Refill, No Pedal Edema Neurological: Alert, Oriented, CN II-XII Intact, Normal Cognition, Normal Gait, Normal Reflexes, No Motor/Sensory Deficits Psychiatric: Normal Affect, Normal Mood Skin Exam: Warm, Dry, Intact, Normal Color, No Rash Lymphatic: No Adenopathy Course - Vital Signs Last Recorded V/S: Last Vital Signs Temp 98.0 F 11/05/20 11:34 Pulse 110 H 11/05/20 11:34 Resp 18 11/05/20 11:34 BP 132/84 11/05/20 11:34 Pulse Ox 97 11/05/20 11:34 - Orders/Labs/Meds Orders: Active Orders 24 hr Category Date Time Status EKG Documentation Completion [RC] STAT Care 11/05/20 11:38 Ordered CULTURE BLOOD [BC] Stat Lab 11/05/20 11:38 Ordered REFLEX LACTIC ACID YES OR NO [CHEM] Routine Lab 11/05/20 12:24 Received Sodium Chloride 0.9% [Normal Saline] 1,000 ml Med 11/05/20 12:19 Ordered IV .BOLUS Medication Orders Sodium Chloride (Normal Saline) 1,000 mls @ 500 mls/hr IV .BOLUS ONE Stop: 11/05/20 14:18 Last Admin: 11/05/20 12:23 Dose: 500 mls/hr Documented by: MANPREET Labs: Laboratory Tests 11/05/20 11/05/20 11/05/20 Range/Units 11:41 11:41 11:41 WBC 5.2 (5.0-10.0) 10^3/uL RBC 5.51 (4.6-6.2) 10^6/uL Hgb 15.2 (14.0-18.0) g/dL Hct 45.1 (40.0-54.0) % MCV 81.9 D (80-100) fL MCH 27.6 (27.0-34.0) pg MCHC 33.7 (33.0-35.0) g/dL Plt Count 217 (150-450) 10^3/uL Neut % (Auto) 57.0 (42.2-75.2) % Lymph % (Auto) 31.1 (20.5-50.1) % [place] % (Auto) 8.4 H (2-8) % Eos % (Auto) 3.1 H (1.0-3.0) % Baso % (Auto) 0.4 (0.0-1.0) % Sodium 141 (136-145) mmol/L Potassium 3.4 L (3.5-5.1) mmol/L Chloride 104 (98-107) mmol/L Carbon Dioxide 24 (21-32) mmol/L Anion Gap 16.4 H (7-13) mEq/L BUN 7 (7-18) mg/dL Creatinine 0.71 (0.70-1.30) mg/dL Est Cr Clr Drug Dosing TNP Estimated GFR (MDRD) > 60 BUN/Creatinine Ratio 9.9 (No establ ref range) Glucose 136 H (70-99) mg/dL Lactic Acid 2.1 H* (0.4-2.0) mmol/L Calcium 8.4 L (8.5-10.1) mg/dL Magnesium 2.1 (1.8-2.4) mg/dL Total Bilirubin 0.7 (0.2-1.0) mg/dL AST 100 H (15-37) U/L ALT 97 H (16-63) U/L Alkaline Phosphatase 103 (46-116) U/L Troponin I < 0.017 (0.000-0.056) ng/mL Total Protein 7.7 (6.4-8.2) g/dL Albumin 3.3 L (3.4-5.0) g/dL Globulin 4.4 Albumin/Globulin Ratio 0.75 Meds: Medications Generic Name Dose Route Start Last Admin Trade Name Freq PRN Reason Stop Dose Admin Sodium Chloride 1,000 mls @ 500 mls/hr 11/05/20 12:19 11/05/20 12:23 Normal Saline IV 11/05/20 14:18 500 mls/hr .BOLUS ONE Administration Discontinued Medications Generic Name Dose Route Start Last Admin Trade Name Freq PRN Reason Stop Dose Admin Ondansetron HCl 4 mg 11/05/20 12:49 Ondansetron 4 Mg/2 Ml Sdv IVPUSH 11/05/20 12:50 ONETIME ONE Departure - Departure Time of Disposition: 13:51 Disposition: Home, Self-Care 01 Condition: Fair Clinical Impression: Post-COVID syndrome Nausea & vomiting Qualifiers: Vomiting type: unspecified Vomiting Intractability: intractable Qualified Code(s): R11.2 - Nausea with vomiting, unspecified URI (upper respiratory infection) Qualifiers: URI type: unspecified URI Qualified Code(s): J06.9 - Acute upper respiratory infection, unspecified - Discharge Information *PRESCRIPTION DRUG MONITORING PROGRAM REVIEWED*: Not Applicable *COPY OF PRESCRIPTION DRUG MONITORING REPORT IN PATIENT MAYA: Not Applicable Instructions: Nausea and Vomiting, Adult, [id number] Forms: ED Department Discharge Care Plan Goals: The patient was advised of the examination and lab results during the visit. The patient was given IV fluids and IV Zofran while in the ED. The patient was encouraged to stick to a BRAT diet (bananas, rice, applesauce and toast) with small frequent sips of fluid. If the patient has any additional symptoms or concerns, the patient should either return to the emergency department or fo llow-up with his primary care facility. Sepsis Event Note (ED) - Evaluation Sepsis Screening Result: No Definite Risk - Focused Exam Vital Signs: Vital Signs Temp Pulse Resp BP Pulse Ox 11/05/20 11:34 98.0 F 110 H 18 132/84 97 - My Orders Last 24 Hours: My Active Orders 11/05/20 11:38 EKG Documentation Completion [RC] STAT CULTURE BLOOD [BC] Stat 11/05/20 12:19 Sodium Chloride 0.9% [Normal Saline] 1,000 ml IV .BOLUS 11/05/20 12:24 REFLEX LACTIC ACID YES OR NO [CHEM] Routine - Assessment/Plan Last 24 Hours: My Active Orders 11/05/20 11:38 EKG Documentation Completion [RC] STAT CULTURE BLOOD [BC] Stat 11/05/20 12:19 Sodium Chloride 0.9% [Normal Saline] 1,000 ml IV .BOLUS 11/05/20 12:24 REFLEX LACTIC ACID YES OR NO [CHEM] Routine
[2020-11-05 12:29] LABS: ANION GAP 16.4 mEq/L (7-13); CHLORIDE,CL 104 mmol/L (98-107); SODIUM,NA 141 mmol/L (136-145)
[2020-11-05] MEDS ORDERED: Ondansetron 4 MG/2 ML SDV IVPUSH ONE (12:49)
== END 2020-11-05 14:19 | disposition home or self-care (01) ==
LOC: DL.ED 11:21
DX: R11.2 Nausea with vomiting, unspecified (principal); J06.9 Acute upper respiratory infection, unspecified; I10 Essential (primary) hypertension; J45.909 Unspecified asthma, uncomplicated; Z72.0 Tobacco use
CPT/HCPCS: 36415; 80053; 83605; 83735; 84484; 85025; 87040; 93005; 96374; 99283; 99285-25; J2405; J7030

== ENCOUNTER 2021-10-15 08:04 | Emergency (ER) | payer MEDICAID ==
[2021-10-15 08:22] VITALS: BP 143/98; PULSE 95
[2021-10-15 09:09] LABS: HEMOGLOBIN A1C 7.1 % (<5.7)
[2021-10-15 09:13] LABS: ANION GAP 11.4 mEq/L (7-13); CHLORIDE,CL 104 mmol/L (98-107); SODIUM,NA 141 mmol/L (136-145)
== END 2021-10-15 09:54 | disposition home or self-care (01) ==
LOC: DL.ED 08:04
DX: R07.89 Other chest pain (principal); K59.00 Constipation, unspecified; E11.9 Type 2 diabetes mellitus without complications; I10 Essential (primary) hypertension; F17.210 Nicotine dependence, cigarettes, uncomplicated
CPT/HCPCS: 36415; 71045; 80053; 82150; 83036; 83605; 83690; 84484; 85025; 86140; 93010; 99284; 99285-25